=== PATIENT | male | born 1965 | race Caucasian/White ===

== ENCOUNTER 2019-05-17 03:54 | Inpatient (IN) | payer BC ==
[2019-05-17] MEDS ORDERED: MIDAZOLAM 2 MG/2 ML VIAL IVP ONE ×2 (04:17→05:20)
[2019-05-17] MEDS ORDERED: LIDOCAINE 1% INJ 10MG/ML (20 ML MDV) SQ ONE (04:17)
[2019-05-17] MEDS ORDERED: VERAPAMIL SYRINGE (5 MG/10 ML) INTRAARTER ONE (04:19)
[2019-05-17] MEDS ORDERED: SODIUM CHLORIDE 0.9% 1,000 ML IV ONE (04:20)
[2019-05-17] MEDS ORDERED: BIVALIRUDIN BOLUS 250 MG/50 ML IV ONE (04:25)
[2019-05-17] MEDS ORDERED: BIVALIRUDIN 250 MG in SODIUM CHLORIDE 0.9% 50 ML IV ONE ×2 (04:25→05:35)
[2019-05-17] MEDS ORDERED: PRASUGREL 10 MG TAB PO ONE (04:37)
[2019-05-17] MEDS ORDERED: HYDROmorphone 1 MG/ML 1 ML SYRINGE IVP ONE (05:10)
[2019-05-17] MEDS ORDERED: NITROGLYCERIN 1000MCG/10ML SYRINGE INTRACORON ONE (05:36)
[2019-05-17] MEDS ORDERED: IOPAMIDOL-370 50ML BTL INJ ONE (05:38)
[2019-05-17] MEDS ORDERED: IOPAMIDOL-370 125ML BTL INJ ONE ×2 (05:38→05:52)
[2019-05-17] MEDS ORDERED: ZOLPIDEM 5 MG TAB PO PRN (06:02)
[2019-05-17] MEDS ORDERED: NITROGLYCERIN SL TABS 0.4 MG TAB SUBLINGUAL PRN (06:02)
[2019-05-17] MEDS ORDERED: ATROPINE SULFATE 0.1 MG/ML 10ML SYRINGE IV PRN (06:02)
[2019-05-17] MEDS ORDERED: RX INFO: IV CONTRAST WAS GIVEN 1 EACH MISC MISCELLANE PRN (06:02)
[2019-05-17] MEDS ORDERED: MAG HYDROX/AL HYDROX/SIMETH 30 ML CUP PO PRN (06:02)
--- NOTE | 2019-05-17 06:09 | P.CRDCN ---
History of Present Illness Consult date: 05/17/19 Chief complaint: Chest pain History of present illness: This is a very pleasant 55-year-old gentleman with a past medical history significant for hypertension as well as history of smoking was brought to the emergency room by ambulance with a chest discomfort and EKG concerning for acute ST segment elevation inferiorly. The patient has been experiencing intermittent episodes of chest discomfort for the last 3-4 weeks. Yesterday the discomfort got worse and he called ambulance. On the way to the emergency room, the EKG showed half millimeter ST segment elevation inferiorly. The patient subsequently was brought to the cardiac laboratory associate where he underwent an emergent heart catheterization and was found to have total occlusion of the RCA with a complex and calcified lesion was very difficult to wire and stent. By the end I deployed 2 stents in the LAD with a good angiographic results and reduction of stenosis from 100% to 0%. Also he was found to have severe disease involving the mid LAD I stented with an excellent angiographic results and reduction of stenosis from 80% to 0%. Left ventricular gram he was performed and that revealed impaired LV function was EF around 40-45% with basal inferior hypokinesia. By the end of the procedure, no EKG changes seen but the patient was in junctional rhythm and patient was having very mild chest discomfort. He is going to be admitted to the intensive care unit. An echocardiogram will be performed. Dual antiplatelet therapy along with high intensity statin will be given as well as. Medications and Allergies Allergies Allergy/AdvReac Type Severity Reaction Status Date / Time No Known Allergies Allergy Verified 05/17/19 04:05 Physical Exam Vitals: Intake and Output 05/16/19 05/16/19 05/17/19 14:59 22:59 06:59 Intake Total 35 Balance 35 Intake: IV 35 Other: Weight 88.1 kg - Constitutional General appearance: no acute distress - Respiratory Respiratory: bilateral: diminished - Cardiovascular Rhythm: regular Heart sounds: normal: S1, S2 Results Current Medications Generic Name Dose Route Start Last Admin Trade Name Freq PRN Reason Stop Dose Admin Al Hydroxide/Mg Hydroxide 30 ml 05/17/19 06:02 Maalox PO Q4HR PRN Heartburn Atorvastatin Calcium 80 mg 05/17/19 21:00 Lipitor PO HS DURGA Atropine Sulfate 0.5 mg 05/17/19 06:02 Atropine IV ONCE PRN Symptomatic Bradycardia Sodium Chloride 1,000 mls @ 100 mls/hr 05/17/19 06:15 Saline 0.9% IV 05/17/19 12:16 .Q10H DURGA Lisinopril 10 mg 05/17/19 09:00 Zestril PO DAILY DURGA Miscellaneous Information 1 each 05/17/19 06:02 Rx Info: Iv Contrast Was Given MISCELLANE 05/19/19 06:02 DAILY PRN Per Protocol Nitroglycerin 0.4 mg 05/17/19 06:02 Nitrostat SUBLINGUAL Q5M PRN Chest Pain Prasugrel 10 mg 05/18/19 06:03 Effient PO DAILY DURGA Zolpidem Tartrate 5 mg 05/17/19 06:02 Ambien PO HS PRN Insomnia Intake and Output 05/16/19 05/16/19 05/17/19 14:59 22:59 06:59 Intake Total 35 Balance 35 Intake: IV 35 Other: Weight 88.1 kg Patient Weight 05/17/19 06:59 Weight 88.1 kg Assessment and Plan Assessment: Assessment #[address] patient myocardial infarction #2 status post PCI of the RCA #3 status post PCI of the LAD #4 hypertension Plan #1 dual antiplatelet therapy along with high intensity statin #2 anti-ischemic medication #3 an echocardiogram was Doppler #4 follow-up with the patient Thank you for allowing us participate in his care
[2019-05-17] MEDS ORDERED: SODIUM CHLORIDE 0.9% 1,000 ML IV SCH (06:15)
[2019-05-17 06:16] LABS: Basophils % (A) 1 %; Eosinophils # (A) 0.1 k/uL (0-0.7); Eosinophils % (A) 1 %; HCT 42.5 % (39.0-53.0); HGB 14.4 gm/dL (13.0-17.5); Lymphocytes # (A) 0.5 k/uL (1.0-4.8); Lymphocytes % (A) 6 %; MCH 28.8 pg (25.0-35.0); MCHC 33.8 g/dL (31.0-37.0); MCV 85.3 fL (80.0-100.0); Mean Platelet Volume 7.9; Monocytes # (A) 0.3 k/uL (0-1.0); Monocytes % (A) 3 %; Neutrophils % (A) 89 %; Platelet Count 308 k/uL (150-450); RBC 4.99 m/uL (4.30-5.90); RDW 12.2 % (11.5-15.5); WBC 9.1 k/uL (3.8-10.6)
[2019-05-17 06:26] LABS: Glucose,Whole Blood 197 mg/dL (75-99)
[2019-05-17 06:29] LABS: African American GFR (CKD) >90 (>60 ml/min/1.73 sqM); Anion Gap 10 mmol/L; Blood Urea Nitrogen 21 mg/dL (9-20); Calcium 8.7 mg/dL (8.4-10.2); Carbon Dioxide 20 mmol/L (22-30); Chloride 102 mmol/L (98-107); Glucose 231 mg/dL (74-99); Non-African American GFR(CKD) >90 (>60 ml/min/1.73 sqM); Potassium 4.6 mmol/L (3.5-5.1); Sodium 132 mmol/L (137-145)
[2019-05-17 06:46] LABS: Creatine Kinase MB 8.7 ng/mL (0.0-2.4); Troponin I 1.31 ng/mL (0.000-0.034)
--- NOTE | 2019-05-17 07:34 | CC ---
CARDIAC CATHETERIZATION REPORT CARDIAC CATHETERIZATION AND PERCUTANEOUS CORONARY INTERVENTION: DATE OF SERVICE: May 17, 2019 PERFORMING PHYSICIAN: Brent De La Cruz MD. PROCEDURE PERFORMED: 1. Selective right and left coronary angiogram. 2. Successful stenting of the mid left anterior descending artery using 3.5 x 15 mm Xience CASA with an excellent angiographic results and reduction of stenosis from 80% to 0%. 3. Aspiration thrombectomy from the right coronary artery with extraction of large red thrombus. 4. Successful stenting of the mid right coronary artery using 4.0 x 33 mm Xience CASA with an excellent angiographic results. 5. Successful stenting of the proximal right coronary artery using 4.0 x 12 mm Xience CASA with an excellent angiographic results. 6. Left heart catheterization. 7. Left ventriculography. INDICATION: This is a pleasant 54-year-old gentleman with history of hypertension as well as prior history of smoking marijuana, who was experiencing symptoms of chest discomfort. Ambulance was called and the patient was found to be in acute inferior ST-elevation myocardial infarction with very minimal with about 0.[address]-segment elevation inferiorly only. He was called as a STEMI and was brought for an emergent heart catheterization. APPROACH: Right radial artery. COMPLICATION: None. LEVEL OF SEDATION: Moderate with a sedation length of 96 minutes. Door to balloon was 94 minutes. The door to balloon was above 90 minutes because I had a hard time wiring the right coronary artery which was extremely tortuous as well as calcified. PROCEDURE DESCRIPTION: After obtaining an informed consent, the patient was brought to the cardiac earthmoving labourer. The right radial artery was cannulated using micropuncture technique and a micropuncture wire passed easily then I placed a 6-Turkish sheath 11 cm at the right radial artery. After that, I gave the patient 2 mg of verapamil IA. I did after that start anticoagulation with Angiomax. Selective right and left coronary angiogram performed. Selective right coronary angiogram was performed using JR4 catheter and selective left coronary angiogram was performed using JL3.5 catheter. Left heart catheterization was performed later on during the procedure along with left ventriculography. Subsequently PCI of the LAD and RCA also were performed. The procedure was completed without any complication. SELECTIVE CORONARY ANGIOGRAM: 1. The right coronary artery is a large caliber vessel, a tortuous vessel, and calcified vessel as well. The RCA is totally occluded in the mid portion. 2. The left main has mild disease only. It bifurcates into LCX and LAD. 3. The left circumflex is a large caliber vessel. It is a nondominant vessel. The LCX appeared to have mild disease only. It gives rise into a large OM branch which appeared to be angiographically normal. 4. The LAD: The proximal LAD appeared to have mild disease only. It gives rise into first diagonal branch, which is a medium caliber vessel with mild disease only. The mid LAD after the bifurcation of the second diagonal branch which is a large caliber vessel and seems to be angiographically normal, has a lesion appeared to be in the range of 80%, which is a focal lesion. The LAD distally appeared to be angiographically normal and the LAD does reach the apex. HEMODYNAMICS: The LVEDP was 8 mmHg without significant gradient across aortic valve. LEFT VENTRICULOGRAPHY: Left ventriculography was performed in the GARCIA projection and using a power injection. The left ventricular systolic function appeared to be impaired with EF around 40% to 45% with inferobasal hypokinesia/akinesia. PCI OF THE RCA WELL LAD: I did engage initially the RCA using JR4 guide. Attempting crossing the lesion in the mid RCA using a run-through wire, whisper wire, as well as Fielder XT wire. Fielder XT wire was unsuccessful because of the extreme tortuosity and calcification in the mid RCA. I did also try to use a backup support from SuperCross catheter at 90 degree angle and in spite of that I was unsuccessful. At that point, I decided to go ahead and fix the lesion in the LAD assuming that the RCA lesion was probably chronic. I did engage the left main using JL3.5 guide. I did wire it using a run-through wire. I did after that balloon angioplasty of the lesion in the mid LAD using a 3.5 x 12 mm balloon before I deployed 3.5 x 15 mm Xience CASA where the stent was positioned under fluoroscopy guidance and deployed under its nominal pressure with the following angiogram showing good angiographic results. After that I did left ventriculography, which revealed that there was hypokinesia/akinesia involving the inferobasal left ventricle. At that point, I decided to go again after the RCA lesion, assuming that was the culprit and not the LAD. I did engage the RCA at this point using an Amplatzer guide. Subsequently I was able to wire it at this point using a whisper wire. After that I did initially balloon angioplasty using 2.0 x 12 mm balloon before I was able to do and subsequently I did aspiration thrombectomy because the angiogram previous to that showed large thrombus in the mid RCA. I was able to aspirate large clot which was red from the mid RCA. After that I did stenting of the RCA. In the mid RCA, I deployed 4.0 x 33 mm stent and in the proximal I deployed a 4.0 x 12 mm stent. There was about 2 mm overlap between the 2 stents. Subsequently, I post dilated 2 stents using 5 mm balloon. The final angiogram showed great angiographic results and at that point, the procedure was completed without any complication. CONCLUSION: 1. Acute inferior ST-elevation myocardial infarction. 2. Acute/subacute total occlusion of the mid right coronary artery, which is calcified, fibrotic, and tortuous as well. 3. Severe disease involving the mid left anterior descending artery. 4. Successful stenting of the mid and proximal right coronary artery as described above. 5. Successful stenting of the mid left anterior descending artery. 6. Mildly impaired left ventricular function with ejection fraction between 40% to 45%. 7. Normal left ventricular end-diastolic pressure. POSTPROCEDURE MANAGEMENT: 1. Dual antiplatelet therapy. 2. High intensity statin. 3. Risk factor modification. 4. Follow up with the patient. MMDAVIDEL / IJN: [id number] /
[2019-05-17] MEDS ORDERED: LISINOPRIL 10 MG TAB PO SCH (09:00)
[2019-05-17 10:36] VITALS: BMI 28.4
--- NOTE | 2019-05-17 11:01 | ECHOF ---
Referral Reason:nstemi MEASUREMENTS -------- HEIGHT: 157.5 cm WEIGHT: 88.0 kg BP: 149/92 RVIDd: 3.3 cm (< 3.3) IVSd: 1.2 cm (0.6 - 1.1) LVIDd: 4.4 cm (3.9 - 5.3) LVPWd: 1.2 cm (0.6 - 1.1) IVSs: 1.5 cm LVIDs: 4.3 cm LVPWs: 1.1 cm LAESV Index (A-L): 29.15 ml/m Ao Diam: 3.0 cm (2.0 - 3.7) AV Cusp: 1.9 cm (1.5 - 2.6) LA Diam: 4.2 cm (2.7 - 3.8) MV EXCURSION: 19.436 mm (> 18.000) MV EF SLOPE: 143 mm/s (70 - 150) EPSS: 0.4 cm MV E Joshua: 0.63 m/s MV DecT: 170 ms MV A Joshua: 0.46 m/s MV E/A Ratio: 1.36 RAP: 5.00 mmHg RVSP: 25.25 mmHg FINDINGS -------- Sinus rhythm. This was a technically good study. The left ventricular size is normal. There is mild concentric left ventricular hypertrophy. Overa ll left ventricular systolic function is mildly impaired with, an EF between 45 - 50 %. Inferior ba jhonatan Hypokinesis The right ventricle is normal in size. The left atrial size is normal. The right atrial size is normal. There is mild aortic valve sclerosis. There is no evidence of aortic regurgitation. Mild mitral annular calcification present. Mild mitral regurgitation is present. Mild tricuspid regurgitation present. Right ventricular systolic pressure is normal at < 35 mmHg. There is no evidence of pulmonary hypertension. There is no pulmonic regurgitation present. The aortic root size is normal. There is no pericardial effusion. CONCLUSIONS -------- 1. Sinus rhythm. 2. This was a technically good study. 3. The left ventricular size is normal. 4. There is mild concentric left ventricular hypertrophy. 5. Overall left ventricular systolic function is mildly impaired with, an EF between 45 - 50 %. 6. Inferior basal Hypokinesis 7. The right ventricle is normal in size. 8. The left atrial size is normal. 9. The right atrial size is normal. 10. There is mild aortic valve sclerosis. 11. Mild mitral annular calcification present. 12. Mild mitral regurgitation is present. 13. Mild tricuspid regurgitation present. 14. Right ventricular systolic pressure is normal at < 35 mmHg. 15. There is no evidence of pulmonary hypertension. 16. There is no pulmonic regurgitation present. 17. The aortic root size is normal. 18. There is no pericardial effusion. TENT WORKER: Elaine Armstrong RDCS
[2019-05-17] MEDS ORDERED: LISINOPRIL 10 MG TAB PO STA (11:59)
[2019-05-17] MEDS ORDERED: ALPRAZolam 0.25 MG TAB PO STA (12:02)
[2019-05-17] MEDS ORDERED: ALPRAZolam 0.25 MG TAB PO PRN (12:39)
--- NOTE | 2019-05-17 14:50 | P.HPIM ---
History of Present Illness H&P Date: 05/17/19 Chief Complaint: Chest pain History of presenting complaint: This is a very pleasant 54-year-old patient of Dr. Pineda. Chronic stable medical conditions include hypertension, asthma, GERD. Asthma only bothers him occasionally. For last few days patient is having chest pressure on and off with activity. Settling down. Early hours of this morning patient developed significant chest pain across chest. Went up to his arm and neck. No dizziness no lightheadedness no perspiration. decided to bring him in. Patient ruled in for acute [place]. Patient was found of a complete occlusion of the RCA with a complex and calcified lesion. Patient also got 2 stents to the LAD. EF was 40-45%. Patient was in junctional rhythm. Currently sitting up in a chair. Procardia symptoms. is present. Review of systems: GEN.: [Tired EYES: None HEENT: None NECK: None RESPIRATORY: None CARDIOVASCULAR: As above GASTROINTESTINAL: Heartburn GENITOURINARY: None MUSCULOSKELETAL: None LYMPHATICS: None HEMATOLOGICAL: None PSYCHIATRY: None NEUROLOGICAL: None Past medical history to include: Hypertension, asthma, GERD Social history: Does marijuana about twice a week. Drinks a sixpack on Wednesday- beer. . Works in sales Family history: Reviewed, noncontributory to presentation Physical examination: VITAL SIGNS: 98.4, 75, 20, 11 8/75, 96% GENERAL: BMI 28.4, sitting up, comfortable. EYES: Pupils equal. Conjunctiva normal. HEENT: External appearance of nose and ears normal, oral cavity grossly normal. NECK: JVD not raised; masses not palpable. HEART: First and second heart sounds are normal; no edema. LUNGS: Respiratory rate normal; clear to auscultation. ABDOMEN: Soft, nontender, liver spleen not palpable, no masses palpable. PSYCH: Alert and oriented x3; mood and affect normal. NEUROLOGICAL: Cranial nerves grossly intact; no facial asymmetry, power and sensation grossly intact. LYMPHATICS: No lymph nodes palpable in the axilla and neck INVESTIGATIONS, reviewed in the clinical context: White count 9.1 hemoglobin 40.4 platelets 308 potassium 4.6 creatinine 0.8 Glucose 231 Troponin I- 1.3, 29.[address] elevation inferior leads Assessment: -Acute ST elevation inferior wall, acute myocardial infarction -Emergent cardiac catheterization with double stent to the LAD completely occluded obstructed RCA -Acute congestive heart failure, ischemic EF 40-45% -Intubated asthma -Essential hypertension -GERD -Mild hyponatremia Plan: Patient's currently on Lipitor,, Zestril, Effient,.-Per cardiology. Pepcid will be added. Care was discussed with the patient question were answered. Past Medical History Past Medical History: Asthma, Hyperlipidemia, Hypertension, Myocardial Infarction ([place]) Additional Past Medical History / Comment(s): [place] Apr 2019 x3 stents Last Myocardial Infarction Date:: 2019 History of Any Multi-Drug Resistant Organisms: None Reported Past Surgical History: Heart Catheterization With Stent Date of Last Stent Placement:: 2019 Smoking Status: Light tobacco smoker Medications and Allergies Home Medications Medication Instructions Recorded Confirmed Type Aspirin EC [Ecotrin] 325 mg PO ONCE PRN 05/17/19 05/17/19 History Fluticasone Propion/Salmeterol 1 puff INHALATION RT-BID PRN 05/17/19 05/17/19 History [Wixela 250-50 Inhub] Lisinopril [Zestril] 20 mg PO DAILY 05/17/19 05/17/19 History Allergies Allergy/AdvReac Type Severity Reaction Status Date / Time No Known Allergies Allergy Verified 05/17/19 09:50 Physical Exam Vitals: Vital Signs Temp Pulse Resp BP Pulse Ox 05/17/19 14:00 70 12 127/86 96 05/17/19 13:00 83 12 136/96 96 05/17/19 12:00 98.5 F 86 14 139/99 97 05/17/19 11:30 78 12 139/99 96 05/17/19 11:00 76 16 146/96 97 05/17/19 10:30 72 12 149/92 95 05/17/19 10:00 73 12 136/95 97 05/17/19 09:30 78 16 130/99 96 05/17/19 09:00 69 12 129/95 97 05/17/19 08:30 61 12 131/82 98 05/17/19 08:00 98.4 F 59 L 14 132/80 97 05/17/19 07:30 66 12 120/84 97 05/17/19 07:00 98.4 F 75 20 118/75 96 05/17/19 06:30 65 18 120/84 98 05/17/19 06:23 59 L 16 98 Intake and Output 05/16/19 05/17/19 05/17/19 22:59 06:59 14:59 Intake Total 200 2020 Output Total 1999 Balance 200 20 Intake: IV 200 700 Sodium Chloride 0.9% 1, 700 000 ml @ 100 mls/hr IV . Q10H [facility] Rx#:[id number] Oral 1320 Output: Urine 2000 Other: # Bowel Movements 1 Weight 89.9 kg 89.9 kg Results CBC & Chem 7: 05/17/19 05:50 05/17/19 05:50 Labs: Abnormal Lab Results - Last 24 Hours (Table) 05/17/19 05/17/19 05/17/19 Range/Units 05:50 05:50 05:50 Neutrophils # 8.0 H (1.3-7.7) k/uL Lymphocytes # 0.5 L (1.0-4.8) k/uL Sodium 132 L (137-145) mmol/L Carbon Dioxide 20 L (22-30) mmol/L BUN 21 H (9-20) mg/dL Glucose 231 H (74-99) mg/dL POC Glucose (mg/dL) (75-99) mg/dL Total Creatine Kinase 172 H (55-170) U/L CK-MB (CK-2) 8.7 H (0.0-2.4) ng/mL Troponin I 1.310 H* (0.000-0.034) ng/mL 05/17/19 05/17/19 Range/Units 06:24 11:49 Neutrophils # (1.3-7.7) k/uL Lymphocytes # (1.0-4.8) k/uL Sodium (137-145) mmol/L Carbon Dioxide (22-30) mmol/L BUN (9-20) mg/dL Glucose (74-99) mg/dL POC Glucose (mg/dL) 197 H (75-99) mg/dL Total Creatine Kinase (55-170) U/L CK-MB (CK-2) (0.0-2.4) ng/mL Troponin I 29.800 H* (0.000-0.034) ng/mL
[2019-05-17] MEDS: FAMOTIDINE 20 MG TAB PO SCH ×2 (15:20→20:18)
[2019-05-17] MEDS: ATORVASTATIN 80 MG TAB PO SCH (20:18)
[2019-05-18 01:29] LABS: Hemoglobin A1C 7.2 % (4.0-6.0)
[2019-05-18 05:32] LABS: Basophils # (A) 0.1 k/uL (0-0.2); Basophils % (A) 0 %; Eosinophils # (A) 0.1 k/uL (0-0.7); Eosinophils % (A) 1 %; HCT 46.2 % (39.0-53.0); HGB 14.9 gm/dL (13.0-17.5); Lymphocytes # (A) 0.7 k/uL (1.0-4.8); Lymphocytes % (A) 6 %; MCH 28.1 pg (25.0-35.0); MCHC 32.3 g/dL (31.0-37.0); MCV 87.1 fL (80.0-100.0); Mean Platelet Volume 8.3; Monocytes # (A) 0.7 k/uL (0-1.0); Monocytes % (A) 6 %; Neutrophils # (A) 10.2 k/uL (1.3-7.7); Neutrophils % (A) 86 %; Platelet Count 282 k/uL (150-450); RBC 5.31 m/uL (4.30-5.90); RDW 12.5 % (11.5-15.5); WBC 11.8 k/uL (3.8-10.6)
[2019-05-18 05:41] LABS: African American GFR (CKD) >90 (>60 ml/min/1.73 sqM); Anion Gap 6 mmol/L; Blood Urea Nitrogen 13 mg/dL (9-20); Calcium 9.4 mg/dL (8.4-10.2); Carbon Dioxide 24 mmol/L (22-30); Chloride 108 mmol/L (98-107); Glucose 178 mg/dL (74-99); Non-African American GFR(CKD) >90 (>60 ml/min/1.73 sqM); Potassium 4.8 mmol/L (3.5-5.1); Sodium 138 mmol/L (137-145)
[2019-05-18] MEDS: PRASUGREL 10 MG TAB PO SCH ×2 (06:27→10:39)
--- NOTE | 2019-05-18 07:32 | P.PN ---
Subjective Progress Note Date: 05/18/19 Principal diagnosis: Acute inferior ST elevation [place] This is a very pleasant 54-year-old gentleman who presented to the hospital with a chest discomfort and was diagnosed with acute inferior ST elevation myocardial infarction. He underwent a heart catheterization and stenting of the RCA and LAD. He was seen today, 05/18/2019. He is asymptomatic from a cardiac standpoint. Hemodynamically he is a slightly hypertensive and tachycardic. I'm going to add metoprolol to the current medical regimen. Continue antiplatelets. The echocardiogram was performed and revealed mildly impaired LV function was EF between 45-50%. From the cardiac standpoint of view, the patient can be transferred to the floor. Objective - Vital Signs Vital signs: Vital Signs Temp 98.6 F 05/18/19 04:00 Pulse 79 05/18/19 07:00 Resp 16 05/18/19 07:00 BP 150/95 05/18/19 07:00 Pulse Ox 97 05/18/19 07:00 Intake & Output 05/17/19 05/18/19 05/18/19 18:59 06:59 18:59 Intake Total 2980 240 Output Total 3300 1250 Balance -320 -1010 Weight 89.9 kg Intake: IV 700 Sodium Chloride 0.9% 1, 700 000 ml @ 100 mls/hr IV . Q10H DURGA Rx#:[id number] Oral 2280 240 Output: Urine 3300 1250 Other: Voiding Method Urinal # Bowel Movements 1 - Labs CBC & Chem 7: 05/18/19 04:45 05/18/19 04:45 Labs: Abnormal Lab Results - Last 24 Hours (Table) 05/17/19 05/17/19 05/17/19 Range/Units 11:49 17:43 17:43 WBC (3.8-10.6) k/uL Neutrophils # (1.3-7.7) k/uL Lymphocytes # (1.0-4.8) k/uL Chloride (98-107) mmol/L Glucose (74-99) mg/dL Hemoglobin A1c 7.2 H (4.0-6.0) % Troponin I 29.800 H* 37.100 H* (0.000-0.034) ng/mL 05/18/19 05/18/19 Range/Units 04:45 04:45 WBC 11.8 H (3.8-10.6) k/uL Neutrophils # 10.2 H (1.3-7.7) k/uL Lymphocytes # 0.7 L (1.0-4.8) k/uL Chloride 108 H (98-107) mmol/L Glucose 178 H (74-99) mg/dL Hemoglobin A1c (4.0-6.0) % Troponin I (0.000-0.034) ng/mL
[2019-05-18] MEDS: ASPIRIN 325 MG TAB PO SCH (10:38)
[2019-05-18] MEDS: LISINOPRIL 20 MG TAB PO SCH (10:38)
[2019-05-18] MEDS: FAMOTIDINE 20 MG TAB PO SCH ×2 (10:38→21:54)
[2019-05-18] MEDS: METOPROLOL TARTRATE 25 MG TAB PO SCH ×2 (10:38→21:54)
--- NOTE | 2019-05-18 15:20 | CDI ---
Documentation Clarification Form Date: 05/18/2019 03:10:15 PM From: Emily Adams CCS, CCDS Admit Date: 05/17/2019 03:54:00 AM Patient Name: Dilan Zambrano Visit Number: [id number] Discharge Date: ATTENTION: The Clinical Documentation Specialists (CDI) and [facility] Coding Staff appreciate your assistance in clarifying documentation. Please respond to the clarification below the line at the bottom and electronically sign. The CDI & [facility] Coding staff will review the response and follow-up if needed. Please note: Queries are made part of the Legal Health Record. If you have any questions, please contact the author of this message via ITS. Dr. Todd Jameson: Per the 05/17 History & Physical: "Acute congestive heart failure, ischemic EF 40-45%." History/Risk Factors: Hypertension, Asthma, GERD, Asthma, Marijuana use. Clinical Indicators: Presented to the ED on 05/17 with chest pain, ruled in for an Acute STEMI, taken to the chemical lab technician emergently for a heart catheterization & PTCA with stents. VS 05/17: T 98.4, P 59* - 75, R 16 - 20 LAB: Na 132*, Gluc 231^, CKMB 8.7^, Troponin 1.310^^, 29.800^^, 37.100^^. BNP: not done this admission. Echocardiogram Results 05/17: Mild concentric LVH, systolic function mildly impaired w/EF 45-50%, mild aortic valve sclerosis, Mild MR, Mild TR, no pulmonary hypertension. Chest X Ray: No CXR done this admission. Treatment: Emergent heart catheterization & stent placement, IV Dilaudid, IV fluid 1,000 mls @ 100/hr, po Aspirin, po Lopressor. No diuretic given. In your professional opinion, can you please clarify the acuity and type of CHF if known? Heart Failure ruled out Systolic Heart Failure: o Acute o Chronic o Acute on Chronic Unable to Determine Other, please specify (Last Revision: June 2017) MTDD
--- NOTE | 2019-05-18 21:09 | P.PN ---
Progress Note - Text Progress Note Date: 05/18/19 Chief Complaint: Chest pain History of presenting complaint: This is a very pleasant 54-year-old patient of Dr. Pineda. Chronic stable medical conditions include hypertension, asthma, GERD. Asthma only bothers him occasionally. For last few days patient is having chest pressure on and off with activity. Settling down. Early hours of this morning patient developed significant chest pain across chest. Went up to his arm and neck. No dizziness no lightheadedness no perspiration. decided to bring him in. Patient ruled in for acute RI. Patient was found of a complete occlusion of the RCA with a complex and calcified lesion. Patient also got 2 stents to the LAD. EF was 40-45%. Patient was in junctional rhythm. Today-ICU. Up and about no chest pain or shortness of breath. No new issues. Feeling better. Review of systems: Was done for constitutional, cardiovascular, GI, pulmonary. relevant finding as above Active Medications Al Hydroxide/Mg Hydroxide (Maalox) 30 ml PO Q4HR PRN PRN Reason: Heartburn Alprazolam (Xanax) 0.25 mg PO ONCE PRN PRN Reason: Anxiety Aspirin (Aspirin) 325 mg PO DAILY [facility] Last Admin: 05/18/19 10:38 Dose: 325 mg Documented by: Atorvastatin Calcium (Lipitor) 80 mg PO HS [facility] Last Admin: 05/17/19 20:18 Dose: 80 mg Documented by: Atropine Sulfate (Atropine) 0.5 mg IV ONCE PRN PRN Reason: Symptomatic Bradycardia Famotidine (Pepcid) 20 mg PO BID [facility] Last Admin: 05/18/19 10:38 Dose: 20 mg Documented by: Lisinopril (Zestril) 20 mg PO DAILY [facility] Last Admin: 05/18/19 10:38 Dose: 20 mg Documented by: Metoprolol Tartrate (Lopressor) 25 mg PO BID [facility] Last Admin: 05/18/19 10:38 Dose: 25 mg Documented by: Miscellaneous Information (Rx Info: Iv Contrast Was Given) 1 each MISCELLANE DAILY PRN PRN Reason: Per Protocol Stop: 05/19/19 06:02 Nitroglycerin (Nitrostat) 0.4 mg SUBLINGUAL Q5M PRN PRN Reason: Chest Pain Prasugrel (Effient) 10 mg PO DAILY [facility] Last Admin: 05/18/19 10:39 Dose: Not Given Documented by: Zolpidem Tartrate (Ambien) 5 mg PO HS PRN PRN Reason: Insomnia Physical examination: VITAL SIGNS: 98.3-60-10-151/101, 99% room air GENERAL: BMI 28.4, sitting up, comfortable. EYES: Pupils equal. Conjunctiva normal. HEENT: External appearance of nose and ears normal, oral cavity grossly normal. NECK: JVD not raised; masses not palpable. HEART: First and second heart sounds are normal; no edema. LUNGS: Respiratory rate normal; clear to auscultation. ABDOMEN: Soft, nontender, liver spleen not palpable, no masses palpable. PSYCH: Alert and oriented x3; mood and affect normal. INVESTIGATIONS, reviewed in the clinical context: White count 9.8 and crit 14.9 potassium 4.8 creatinine 0.8 Previous testing White count 9.1 hemoglobin 40.4 platelets 308 potassium 4.6 creatinine 0.8 Glucose 231 Troponin I- 1.3, 29.[address] elevation inferior leads 2-D echo-EF 45-50% inferior wall hypokinetic Assessment: -Acute ST elevation inferior wall, acute myocardial infarction -Emergent cardiac catheterization with double stent to the LAD completely occluded obstructed RCA -Acute congestive heart failure, ischemic EF 45% -Intermittent asthma -Essential hypertension -GERD -Mild hyponatremia Plan: Discussed with the patient. Continue to ambulate. Continue current medications. Hopefully discharge tomorrow.
[2019-05-18] MEDS: ATORVASTATIN 80 MG TAB PO SCH (21:54)
[2019-05-19 05:57] LABS: HCT 46.3 % (39.0-53.0); HGB 15.1 gm/dL (13.0-17.5); MCH 28.5 pg (25.0-35.0); MCHC 32.6 g/dL (31.0-37.0); MCV 87.3 fL (80.0-100.0); Mean Platelet Volume 8.3; Platelet Count 348 k/uL (150-450); RDW 12.3 % (11.5-15.5); WBC 10.9 k/uL (3.8-10.6)
[2019-05-19 06:10] VITALS: RESP 18
[2019-05-19 06:20] LABS: African American GFR (CKD) >90 (>60 ml/min/1.73 sqM); Anion Gap 11 mmol/L; Blood Urea Nitrogen 17 mg/dL (9-20); Carbon Dioxide 24 mmol/L (22-30); Chloride 103 mmol/L (98-107); Glucose 199 mg/dL (74-99); Non-African American GFR(CKD) >90 (>60 ml/min/1.73 sqM); Potassium 4.5 mmol/L (3.5-5.1); Sodium 138 mmol/L (137-145)
[2019-05-19] MEDS: FAMOTIDINE 20 MG TAB PO SCH (08:20)
[2019-05-19] MEDS: LISINOPRIL 20 MG TAB PO SCH (08:20)
[2019-05-19] MEDS: PRASUGREL 10 MG TAB PO SCH (08:20)
[2019-05-19] MEDS: METOPROLOL TARTRATE 25 MG TAB PO SCH (08:20)
[2019-05-19] MEDS: ASPIRIN 325 MG TAB PO SCH (08:20)
--- NOTE | 2019-05-19 08:44 | P.PN ---
Subjective Progress Note Date: 05/19/19 Principal diagnosis: Acute inferior ST elevation [place] This is a very pleasant 54-year-old gentleman who presented to the hospital with a chest discomfort and was diagnosed with acute inferior ST elevation myocardial infarction. He underwent a heart catheterization and stenting of the RCA and LAD. The patient was seen today, 05/19/2019. He is asymptomatic from a cardiovascular standpoint overview. He is maintaining normal sinus mechanism. The echo revealed normal left ventricular systolic function with a blood pressure continues to be elevated and I am going to increase the dose of lisinopril to 20 mg by mouth twice a day which is his home dose. From the cardiac standpoint, the patient can be discharged home Objective - Vital Signs Vital signs: Vital Signs Temp 98.0 F 05/19/19 04:00 Pulse 61 05/19/19 06:06 Resp 18 05/19/19 06:06 BP 152/102 05/19/19 06:06 Pulse Ox 97 05/19/19 06:06 Intake & Output 05/18/19 05/19/19 05/19/19 18:59 06:59 18:59 Intake Total 100 1000 Output Total 125 Balance -25 1000 Intake: IV 100 Sodium Chloride 0.9% 1, 100 000 ml @ 100 mls/hr IV . Q10H DURGA Rx#:[id number] Oral 1000 Output: Urine 125 Other: Voiding Method Toilet Toilet # Voids 3 1 - Constitutional General appearance: Present: no acute distress - Respiratory Respiratory: bilateral: CTA - Cardiovascular Rhythm: regular Heart sounds: normal: S1, S2 - Labs CBC & Chem 7: 05/19/19 05:33 05/19/19 05:33 Labs: Abnormal Lab Results - Last 24 Hours (Table) 05/19/19 05/19/19 Range/Units 05:33 05:33 WBC 10.9 H (3.8-10.6) k/uL Glucose 199 H (74-99) mg/dL Assessment and Plan Assessment: Assessment #[address] patient myocardial infarction #2 status post PCI of the RCA #3 status post PCI of the LAD #4 hypertension Plan #1 dual antiplatelet therapy along with high intensity statin #2 anti-ischemic medication #3 an echocardiogram was Doppler #4 follow-up with the patient The patient can be discharged home
[2019-05-19 08:58] VITALS: BP 130/86; PULSE 66; TEMP 97.8
[2019-05-19] MEDS ORDERED: LISINOPRIL 20 MG TAB PO SCH (09:00)
--- NOTE | 2019-05-19 18:11 | P.DS ---
Providers Date of admission: 05/17/19 03:54 Expected date of discharge: 05/19/19 Attending physician: Todd Jameson Consults: 05/17/19 06:02 Consult Physician Routine Consulting Provider: [facility] Consult Reason/Comments: Post Interventional patient Do you want consulting provider notified?: Already Contacted 05/17/19 14:30 Consult Physician Routine Consulting Provider: Todd Jameson Consult Reason/Comments: Primary management Do you want consulting provider notified?: Yes Primary care physician: Martell Pineda [facility] Course: Chief Complaint: Chest pain History of presenting complaint: This is a very pleasant 54-year-old patient of Dr. Pineda. Chronic stable medical conditions include hypertension, asthma, GERD. Asthma only bothers him occasionally. For last few days patient is having chest pressure on and off with activity. Settling down. Early hours of this morning patient developed significant chest pain across chest. Went up to his arm and neck. No dizziness no lightheadedness no perspiration. decided to bring him in. Patient ruled in for acute MS. Patient was found of a complete occlusion of the RCA with a complex and calcified lesion. Patient also got 2 stents to the LAD. EF was 40-45%. Patient was in junctional rhythm. Today-up and about. No cardiac symptoms.. Doing well. Discussed with patient and . Consultation: Dr. De La Cruz from cardiology Physical examination: VITAL SIGNS: 97.8, 66, 18, 130/86, 97% on room air GENERAL: BMI 28.4, sitting up, comfortable. EYES: Pupils equal. Conjunctiva normal. HEENT: External appearance of nose and ears normal, oral cavity grossly normal. NECK: JVD not raised; masses not palpable. HEART: First and second heart sounds are normal; no edema. LUNGS: Respiratory rate normal; clear to auscultation. ABDOMEN: Soft, nontender, liver spleen not palpable, no masses palpable. PSYCH: Alert and oriented x3; mood and affect normal. INVESTIGATIONS, reviewed in the clinical context: White count 10.9 hemoglobin 13.1 potassium 4.5 creatinine 0.94 Previous testing White count 9.1 hemoglobin 40.4 platelets 308 potassium 4.6 creatinine 0.8 Glucose 231 Troponin I- 1.3, 29.[address] elevation inferior leads 2-D echo-EF 45-50% inferior wall hypokinetic Assessment: -Acute ST elevation inferior wall, acute myocardial infarction, POA -Emergent cardiac catheterization with double stent to the LAD completely occluded obstructed RCA -Acute congestive heart failure, ischemic systolic dysfunction EF 45% -Intermittent asthma -Essential hypertension -GERD -Mild hyponatremia Disposition: Home Patient Condition at Discharge: Stable Plan - Discharge Summary Discharge Rx Participant: Yes New Discharge Prescriptions: New Aspirin 81 mg PO DAILY #30 chewable Prasugrel [Effient] 10 mg PO DAILY #30 tab Atorvastatin [Lipitor] 80 mg PO HS #30 tab Metoprolol Tartrate [Lopressor] 25 mg PO BID #60 tab Nitroglycerin Sl Tabs [Nitrostat] 0.4 mg SUBLINGUAL Q5M PRN #30 tab PRN Reason: Chest Pain Famotidine [Pepcid] 20 mg PO BID #60 tab Continue Fluticasone Propion/Salmeterol [Wixela 250-50 Inhub] 1 puff INHALATION RT-BID PRN PRN Reason: Shortness Of Breath Changed Lisinopril [Zestril] 20 mg PO BID #60 tab Discontinued Aspirin EC [Ecotrin] 325 mg PO ONCE PRN PRN Reason: Chest Pain Discharge Medication List Fluticasone Propion/Salmeterol [Wixela 250-50 Inhub] 1 puff INHALATION RT-BID PRN 05/17/19 [History] Aspirin 81 mg PO DAILY #30 chewable 05/19/19 [Rx] Atorvastatin [Lipitor] 80 mg PO HS #30 tab 05/19/19 [Rx] Famotidine [Pepcid] 20 mg PO BID #60 tab 05/19/19 [Rx] Lisinopril [Zestril] 20 mg PO BID #60 tab 05/19/19 [Rx] Metoprolol Tartrate [Lopressor] 25 mg PO BID #60 tab 05/19/19 [Rx] Nitroglycerin Sl Tabs [Nitrostat] 0.4 mg SUBLINGUAL Q5M PRN #30 tab 05/19/19 [Rx] Prasugrel [Effient] 10 mg PO DAILY #30 tab 05/19/19 [Rx] Follow up Appointment(s)/Referral(s): Brent De La Cruz MD [STAFF PHYSICIAN] - 05/30/19 2:45 pm (Please arrive at 2:30 PM. Bring copy of photo ID, insurance card and a list of current medications. ) Martell Pineda MD [Primary Care Provider] - 05/22/19 10:45 am Patient Instructions/Handouts: *Surgery [facility] - After Heart Catheterization - Utilities Ground Worker Instructions, Heart Attack (DC), How to Stop Smoking (DC), Heart Healthy Diet (DC) Activity/Diet/Wound Care/Special Instructions: CARDIAC CATH 1. Support your puncture site by applying firm, steady pressure whenever you cough, laugh, sneeze or bear down to have a bowel movement (2-day restriction). 2. Watch for any excessive bruising, active bleeding, a firm knot forming under your skin, extreme tenderness and signs of infection (redness, swelling, fever). 3. Shower daily, do not soak puncture in a tub bath, jacuzzi, pool, gray etc. for 1 week. This is to prevent risk of infection. 4. Drink plenty of fluids the day of and day after your procedure to flush contrast dye out of your kidneys. 5. Take all medications as directed. Never stop any new medication without your physicians OK. 6. No driving for 2 days after procedure. 7. 10- pound weight lifting restriction for 1 week. 8. Low sodium/low fat diet. 9. Activity limited until follow up appointment with your physician surgeon. In case of any problems, please call [facility] [place] @ [phone]. dc if ok with cardiology Discharge Disposition: HOME SELF-CARE
== END 2019-05-19 13:04 | disposition home or self-care (01) | DRG 246 ==
LOC: 2ORMAIN 03:54 → 2SICU 06:01 → 3SCARD 05-19 06:03
PROVIDERS: ADMIT Hospitalist; ATTEND Hospitalist
PROC: 02C03ZZ Extirpation of Matter from Coronary Artery, One Artery, Percutaneous Approach (ICD-10-PCS; principal; 2019-05-17 03:57)
PROC: B2111ZZ Fluoroscopy of Multiple Coronary Arteries using Low Osmolar Contrast (ICD-10-PCS; principal; 2019-05-17 03:57)
PROC: 027034Z Dilation of Coronary Artery, One Artery with Drug-eluting Intraluminal Device, Percutaneous Approach (ICD-10-PCS; principal; 2019-05-17 03:57)
PROC: 4A023N7 Measurement of Cardiac Sampling and Pressure, Left Heart, Percutaneous Approach (ICD-10-PCS; principal; 2019-05-17 03:57)
DX: I21.19 ST elevation (STEMI) myocardial infarction involving other coronary artery of inferior wall (principal); I50.21 Acute systolic (congestive) heart failure; E87.1 Hypo-osmolality and hyponatremia; I25.10 Atherosclerotic heart disease of native coronary artery without angina pectoris; E78.5 Hyperlipidemia, unspecified; F17.200 Nicotine dependence, unspecified, uncomplicated; I11.0 Hypertensive heart disease with heart failure; I25.82 Chronic total occlusion of coronary artery; J45.20 Mild intermittent asthma, uncomplicated; K21.9 Gastro-esophageal reflux disease without esophagitis; Z79.899 Other long term (current) drug therapy; Z98.61 Coronary angioplasty status; I25.2 Old myocardial infarction
CPT/HCPCS: 80048; 82550; 82553; 83036; 84484; 85025; 85027; 93306; 93458